=== PATIENT | male | born 1990 | race Two or more races ===

== ENCOUNTER 2017-08-14 00:54 | Emergency (ER) | payer SELFPAY ==
[~2017-08-14] VITALS: Ht 185.4 cm; Wt 72.6 kg
[2017-08-14] MEDS ORDERED: KETOROLAC TROMETHAMINE INJ 60 MG/2 ML VIAL IM ONE ×2 (01:42→02:00)
--- NOTE | 2017-08-14 02:31 | NUR ---
Patient does not wish to proceed with medical care recommended by Dr. Romo. Patient given information related to possible complications, up to and including , which could occur as a result of leaving the hospital at this time. Patient verbalizes understanding of risks involved due to leaving against medical advice. Patient has signed AMA form.
[2017-08-14 02:34] VITALS: BP 115/68
== END 2017-08-14 02:35 | disposition left against medical advice (07) ==
LOC: ER 01:05
DX: R07.89 Other chest pain (principal)
CPT/HCPCS: 71010; 93005; 99284; A4606; Z7610; J1885